=== PATIENT | male | born 1995 | race Caucasian/White ===

== ENCOUNTER 2024-10-21 10:34 | Emergency (ER) | payer OTHER, SELFPAY ==
--- NOTE | ~2024-10-21 | XR_ITS ---
EXAMINATION: XR shoulder RT min 2V, XR chest 1V, XR clavicle RT DATE: 10/21/2024 11:45 INDICATION: Right shoulder trauma TECHNIQUE: 1. PA view of the chest was obtained. 2. AP and transscapular Y views of the affected shoulder were obtained. 3. AP and cephalad angled AP views of the right clavicle were obtained. COMPARISON: None FINDINGS: Chest: Lungs are clear with no focal airspace opacities, pulmonary edema, pleural effusion or pneumothorax. Cardiomediastinal silhouette is normal. Right shoulder and clavicle: Oblique mid diaphyseal fracture of the right clavicle with one shaft width caudal displacement of the lateral fragment and 3 cm overriding.The fracture is mildly comminuted with intervening small fragment positioned of the colon to the lateral margin of the medial fragment. No other fractures identified. Normal alignment and joint space at the right glenohumeral and acromioclavicular joints. Bilateral sternoclavicular joints appear normal and symmetric. Bone island at the right humeral head. IMPRESSION: 1. Displaced mildly comminuted mid diaphyseal fracture of the right clavicle with 3 cm overriding. 2. No acute cardiopulmonary disease. Reviewed, dictated and finalized at location A. IMPRESSION: 1. Displaced mildly comminuted mid diaphyseal fracture of the right clavicle wi th 3 cm overriding. 2. No acute cardiopulmonary disease. IMPRESSION: 1. Displaced mildly comminuted mid diaphyseal fracture of the right clavicle wi th 3 cm overriding. 2. No acute cardiopulmonary disease.
--- NOTE | ~2024-10-21 | CT_ITS ---
EXAMINATION: CT brain wo con DATE: 10/21/2024 11:23 INDICATION: Trauma TECHNIQUE: Computed tomography (CT) of the head was performed without intravenous contrast. Sagittal and coronal reconstructions were performed. The mA was adjusted according to patient size. Iterative reconstruction technique was employed. The dose-length product was 756.67 mGy-cm. COMPARISON: None FINDINGS: No fracture. No acute intracranial hemorrhage, acute infarction or abnormal extra axial fluid collection. Ventricles are normal and symmetric. No mass/mass effect. Mucous retention cyst in left maxillary sinus. Mucosal thickening and mucous nearly filling the right maxillary sinus which appears small with mildly thickened sclerotic gaitan suggestive of chronic sinusitis. The orbits, paranasal sinuses and mastoid air cells are normal. IMPRESSION: 1. Normal brain. No fracture or acute intracranial process. 2. Likely chronic right maxillary sinusitis. Reviewed, dictated and finalized at location A.
--- NOTE | ~2024-10-21 | CT_ITS ---
EXAMINATION: CT cervical spine wo con DATE: 10/21/2024 11:23 INDICATION: Trauma TECHNIQUE: Computed tomography (CT) of the cervical spine was performed without intravenous contrast. Automated exposure control and iterative reconstruction technique were employed. The dose-length product was 756.67 mGy-cm. COMPARISON: None FINDINGS: Bone alignment is normal. Vertebral body heights are normal. No fracture. Disc heights are normal. No central canal stenosis. Minimal cervical facet and uncovertebral osteoarthritis which does not result in neural foraminal stenosis. Minimal biapical pleural-parenchymal scarring. Cervical soft tissues are unremarkable. IMPRESSION: 1. Minimal cervical facet and uncovertebral osteoarthritis. Otherwise unremarkable cervical spine CT with no acute osseous abnormality.. Reviewed, dictated and finalized at location A. IMPRESSION: 1. Minimal cervical facet and uncovertebral osteoarthritis. Otherwise unremarka ble cervical spine CT with no acute osseous abnormality..
[2024-10-21 10:48] VITALS: BP 149/87; PULSE 60; RESP 20; TEMP 36.9; O2SAT 100
[2024-10-21] MEDS: MORPHINE SULFATE (*CRX) 4 MG/ML INJ IV PUSH (11:10)
[2024-10-21 12:29] VITALS: BP 136/88; PULSE 78; RESP 18; O2SAT 99
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
== END 2024-10-21 13:21 | disposition home or self-care (01) ==
PROVIDERS: Emergency Provider Emergency Medicine
DX: S42.021A Displaced fracture of shaft of right clavicle, initial encounter for closed fracture (principal); S40.211A Abrasion of right shoulder, initial encounter; S00.81XA Abrasion of other part of head, initial encounter; S80.812A Abrasion, left lower leg, initial encounter; S80.811A Abrasion, right lower leg, initial encounter; S40.812A Abrasion of left upper arm, initial encounter; S40.811A Abrasion of right upper arm, initial encounter; M47.812 Spondylosis without myelopathy or radiculopathy, cervical region; V18.0XXA Pedal cycle driver injured in noncollision transport accident in nontraffic accident, initial encounter; Y93.55 Activity, bike riding
CPT/HCPCS: 70450; 71045; 72125; 73000; 73030; 96374; 99284; A4565; J2270